=== PATIENT | female | born 1990 | race American Indian/Alaskan Native ===

== ENCOUNTER 2016-12-23 16:15 | Inpatient (IN) | payer MEDICAID ==
[2016-12-23 18:20] LABS: Hematocrit 34.7 % (30.3-42.9); Hemoglobin 11.1 gm/dl (10.1-14.3); Mean Corpuscular HGB Conc 32 % (30-34); Mean Corpuscular Hemoglobin 27 pg (28-32); Mean Corpuscular Volume 84 fl (79-97); Platelet Count 199 K/mm3 (140-440); Red Blood Count 4.12 M/mm3 (3.65-5.03); Red Cell Distribution Width 14.1 % (13.2-15.2); White Blood Count 7.1 K/mm3 (4.5-11.0)
[2016-12-23 18:30] LABS: Alanine Aminotransferase < 5 units/L (7-56); Lactate Dehydrogenase 176 units/L (91-180); Uric Acid 4.1 mg/dL (3.5-7.6)
[2016-12-23 18:30] LABS: Bilirubin,Urine NEG (Negative); Blood,Urine NEG (Negative); Ketones,Urine TR mg/dL (Negative); Leukocyte Esterase,Urine SM (Negative); Mucus,Urine 3+ /HPF; Nitrite,Urine NEG (Negative); Urobilinogen,Urine < 2.0 mg/dL (<2.0)
[2016-12-23] MEDS: LACTATED RINGERS 1,000 ML IV SCH ×2 (19:00→20:10)
[2016-12-23] MEDS ORDERED: LACTATED RINGERS 2,000 ML ONE (19:01)
[2016-12-23] MEDS ORDERED: PEPCID IV ONE (19:23)
[2016-12-23] MEDS ORDERED: REGLAN IV ONE (19:23)
[2016-12-23] MEDS ORDERED: BICITRA PO ONE (19:23)
--- NOTE | 2016-12-23 19:34 | Anesthesia Consultation ---
Anesthesia Consult and Med Hx Date of service: 12/23/16 - Airway Anesthetic Teeth Evaluation: Good ROM Head & Neck: Adequate Mental/Hyoid Distance: Adequate Mallampati Class: Class II Intubation Access Assessment: Probably Good - Pulmonary Exam CTA: Yes - Cardiac Exam Cardiac Exam: RRR - Pre-Operative Health Status ASA Pre-Surgery Classification: ASA2 Proposed Anesthetic Plan: Spinal - Pulmonary Hx Asthma: No COPD: No Hx Pneumonia: No - Cardiovascular System Hx Hypertension: Yes (2010 AND 2013) Hx Angina: No - Central Nervous System Hx Seizures: No Hx Psychiatric Problems: No - Endocrine Hx Renal Disease: No Hx End Stage Renal Disease: No Hx Liver Disease: No Hx Hypothyroidism: No Hx Hyperthyroidism: No - Hematic Hx Anemia: Yes (TAKES IRON DAILY) Hx Sickle Cell Disease: No - Other Systems Hx Alcohol Use: No
--- NOTE | 2016-12-23 19:34 | Anesthesia Day of Surgery ---
Anesthesia Day of Surgery - Day of Surgery Patient Examined: Yes Patient H&P Reviewed: Yes Patient is NPO: No (urgent case)
[2016-12-23] MEDS ORDERED: MORPHINE ONE (19:44)
[2016-12-23] MEDS ORDERED: ANCEF/STERILE WATER 2 GM/20 ML 2 GM/20 ML SYRINGE IV NR (20:00)
[2016-12-23] MEDS ORDERED: PITOCin/NS 20 UNIT/1000ML DRIP 20 UNITS/1,000 ML BAG IV SCH ×2 (20:00→23:00)
--- NOTE | 2016-12-23 20:32 | History and Physical Report ---
History of Present Illness Date of examination: 12/23/16 Date of admission: 12/23/16 19:32 Chief complaint: Repeat C Section History of present illness: Pt is a 26yo BF EDC 01/01/17; EGA 38 5/7 weeks presents from the office for BP monitoring. Her BP's ranged from 132-153/90-97 and she was scheduled for a Repeat C Section with BTL tomorrow, but we will proceed tonight. She received care at [facility] since 22 weeks and course was uneventful except for previous C Section x2. records are available and GBS is positive. Past History Past Medical History: hypertension Past Surgical History: section Social history: no significant social history, single - Obstetrical History Expected Date of Delivery: 01/01/17 Actual Gestation: 38 Week(s) 5 Day(s) : 3 Medications and Allergies Allergies Allergy/AdvReac Type Severity Reaction Status Date / Time diphenhydramine HCl Allergy Rash Verified 08/15/13 23:00 [From Benadryl] labetalol [Labetalol] Allergy Rash Verified 01/04/14 01:17 Home Medications Medication Instructions Recorded Confirmed Last Taken Type Ferrous Sulfate [Feosol 325 MG tab] 325 mg PO BID #60 tablet 01/05/14 12/23/16 1 Day Ago Rx Multivitamin [Multi Vitamin Daily] 1 each PO DAILY #60 tablet 01/05/14 12/23/16 1 Day Ago Rx Ferrous Sulfate [Feosol 325 MG tab] 325 mg PO BID #60 tablet 12/23/16 Unknown Rx HYDROcodone/APAP 5-325 [[place] 1 each PO Q6HR PRN #30 tablet 12/23/16 Unknown Rx 5/325] Ibuprofen [Motrin] 800 mg PO Q8HR PRN #30 tablet 12/23/16 Unknown Rx Vit W-Ca,Fe,FA(<1 mg) 1 each PO DAILY #30 tablet 12/23/16 Unknown Rx [ Vitamins] Active Meds: Active Medications Cefazolin Sodium (Ancef/Sterile Water 2 Gm/20 Ml) 2 gm in 20 mls @ 80 mls/hr IV PREOP NR PRN Reason: Protocol Stop: 12/23/16 23:59 Lactated Ringer's (Lactated Ringers) 1,000 mls @ 2,250 mls/hr IV PREOP CHUCKY Stop: 12/24/16 20:27 Last Admin: 12/23/16 19:00 Dose: 2,250 mls/hr Oxytocin/Sodium Chloride (Pitocin/Ns 20 Unit/1000ml Drip) 20 units in 1,000 mls @ 0 mls/hr IV TITR CHUCKY PRN Reason: As Directed Review of Systems All systems: negative - Vital Signs Vital signs: Vital Signs Pulse BP Pulse Ox 102 H 139/90 99 12/23/16 16:45 12/23/16 16:45 12/23/16 16:45 Temp Pulse Resp BP Pulse Ox 98.2 F 93 H 20 151/93 99 12/23/16 19:31 12/23/16 20:02 12/23/16 19:31 12/23/16 19:54 12/23/16 20:02 - Physical Exam Cardiovascular: Regular rate Lungs: Positive: Clear to auscultation Abdomen: Positive: normal appearance Genitourinary (Female): Positive: normal external genitalia Uterus: Positive: enlarged Extremities: Positive: normal - Obstetrical FHR: category 1 Uterine Contraction Monitor Mode: External Results Result Diagrams: 12/23/16 17:40 12/23/16 17:40 Abnormal lab results 12/23/16 12/23/16 12/23/16 Range/Units 16:45 17:40 17:40 MCH 27 L (28-32) pg Creatinine 0.6 L (0.7-1.2) mg/dL ALT < 5 L (7-56) units/L Ur Specific [place] 1.033 H (1.003-1.030) Urine WBC (Auto) 7.0 H (0.0-6.0) /HPF U Epithel Cells (Auto) 18.0 H (0-13.0) /HPF All other labs normal. Assessment and Plan - Patient Problems (1) Previous section complicating Onset Date: 12/23/16 Current Visit: Yes Status: Acute (2) 38 weeks gestation of Onset Date: 12/23/16 Current Visit: No Status: Acute Plan to address problem: A: IUP @ 38 5/7 weeks Previous C Section x 2 induced hypertension Desires permanent sterilization P: Admit to L&D for repeat C Section with BTL (3) Hypertension complicating Onset Date: 11/22/16 Current Visit: No Status: Suspected Qualifiers: Trimester: third trimester Qualified Code(s): O16.3 - Unspecified maternal hypertension, third trimester
[2016-12-23] MEDS ORDERED: ePHEDrine SULFATE ONE ×2 (20:45→22:30)
[2016-12-23] MEDS ORDERED: WATER FOR IRRIG STERILE IR ONE (20:55)
[2016-12-23] MEDS ORDERED: NACL 0.9% IR ONE (20:55)
[2016-12-23] MEDS ORDERED: ZOFRAN ONE (20:59)
[2016-12-23] MEDS ORDERED: ePHEDrine SULFATE IV ONE (21:28)
--- NOTE | 2016-12-23 21:44 | Operative Report ---
Operative Report Operative Report: Date of procedure: 12/23/2016 Pre-operative diagnosis: 1. Intrauterine at 38-5/7 weeks 2. Previous 2 3. -induced hypertension 4. Desires permanent sterilization Post-operative diagnosis: Same Procedure name(s): Repeat low transverse section with bilateral tubal ligation Surgeon: Callum Bellamy MD Crossbow Maker: None Anesthesia: Spinal anesthesia by Dr. Kike Valente EBL: 500 mL Findings: A 3092 g female infant Apgars 8 at 1 minute 8 at 5 minutes. Clear amniotic fluid. Normal uterus. Normal tubes and ovaries bilaterally. Procedure: After the patient was prepped and draped in usual sterile fashion, and after satisfactory level of epidural anesthesia was obtained, the skin knife was used to make a transverse skin incision through the previous skin scar. The incision was excised down to layer of the fascia, which was nicked in the midline and extended laterally using the Bovie cautery. The rectus muscles were dissected off the rectus fascia both superiorly and inferiorly. The rectus bellies in the midline, and the peritoneum was entered under direct visualization. The peritoneal incision was extended superiorly and inferiorly. A bladder flap was created and the bladder blade was then placed. The uterus was scored in a curvilinear linear fashion, entered in the midline revealing clear amniotic fluid. The infant's head was delivered onto the surgical field with the aid of a vacuum, and the oropharynx and nasopharynx were bulb suctioned. The rest of the infant's body was delivered, cord was doubly clamped and cut and the infant was handed to the waiting respiratory team. Cord blood was then obtained. The placenta was manually removed from the uterus, and the uterus removed from its normal anatomical position. After gentle uterine lavage, the incision was inspected and found to be without extensions. It was then closed in 2 layers using 0 Vicryl suture in a running interlocking fashion, the second layer imbricating the first. At this point, attention was turned to the tubal ligation. First the right fallopian tube was grasped using the [place], and after first identifying the fimbriated end the right tube, a [place] clip was applied to the proximal portion of the tube. The same procedure was performed on the left fallopian tube. The left fallopian tube was grasped using a [place], and after first identifying the fimbriated end of the left fallopian tube, the Filsh[place] clip was applied to the proximal portion of the tube. After good hemostasis was achieved, copious amounts or irrigation was performed , and the gutters were suctioned free of blood and blood clots. The uterus was then returned to its normal anatomical position, and after excellent hemostasis assured, the peritoneum was reapproximated using 3-0 Vicryl suture in a running interlocking fashion, and then the rectus muscles were reapproximated using 3-0 Vicryl suture in a [id number] configuration. The fascia was then reapproximated using 0 Vicryl suture in running interlocking fashion. The subcutaneous layer was made hemostatic using Bovie cautery, and reapproximated using 3-0 Vicryl suture, and the skin edges reapproximated using 4-0 Vicryl suture in a subcuticular fashion. Patient tolerated the procedure well was transported to recovery in stable condition.
[2016-12-23] MEDS ORDERED: ZOFRAN IV PRN (21:58)
[2016-12-23] MEDS ORDERED: PHENERGAN PO PRN (21:58)
[2016-12-23] MEDS ORDERED: NARCAN 0.4 MG/1 ML IV PRN ×2 (21:58→22:02)
[2016-12-23] MEDS ORDERED: PHENERGAN PR PRN (21:58)
--- NOTE | 2016-12-23 21:58 | Post Anesthesia Evaluation ---
- Post Anesthesia Evaluation Patient Participated: Yes Airway Patent: Yes Stable Respiratory Function: Yes Nausea/Vomiting: No Temp > 96.8F: Yes Pain Manageable: Yes Adequeate Hydration: Yes Anesthesia Complications: No Block Receding Appropriately: Yes Patient on Ventilator: No
[2016-12-23] MEDS ORDERED: SODIUM CHLORIDE FLUSH SYRINGE 10 ML IV PRN ×2 (22:00→23:00)
[2016-12-23] MEDS ORDERED: TORADOL IV PRN (22:02)
[2016-12-23] MEDS ORDERED: MILK OF MAGNESIA PO PRN (22:02)
[2016-12-23] MEDS ORDERED: TUCKS PAD TP PRN (22:02)
[2016-12-23] MEDS ORDERED: NORCO 5/325 PO PRN (22:02)
[2016-12-23] MEDS ORDERED: SENOKOT PO PRN (22:02)
[2016-12-23] MEDS ORDERED: TYLENOL PO PRN (22:02)
[2016-12-23] MEDS ORDERED: MYLICON PO PRN (22:02)
[2016-12-23] MEDS ORDERED: LANSINOH TP PRN (22:02)
[2016-12-23] MEDS ORDERED: D5LR 1,000 ML IV SCH (23:00)
[2016-12-24] MEDS: ANCEF/NS 1 GM/50 ML 1 GM/50 ML BAG IV SCH ×2 (03:53→12:50)
--- NOTE | 2016-12-24 10:29 | Progress Note ---
Assessment and Plan - Patient Problems (1) Previous section complicating Onset Date: 12/23/16 Current Visit: Yes Status: Resolved (2) 38 weeks gestation of Onset Date: 12/23/16 Current Visit: No Status: Resolved (3) Hypertension complicating Onset Date: 11/22/16 Current Visit: No Status: Suspected Qualifiers: Trimester: third trimester Qualified Code(s): O16.3 - Unspecified maternal hypertension, third trimester (4) Status post repeat low transverse section Onset Date: 12/24/16 Current Visit: Yes Status: Resolved Plan to address problem: A: S/P Repeat C Section with BTL - POD #1 Doing well Suspected chronic hypertension P: Continue RPOC Will begin Procardia XL 30mg QD Subjective - Subjective Date of service: 12/24/16 Principal diagnosis: s/p Repeat C Section - POD #1 Interval history: Pt is s/p a Repeat C Section with BTL and feeling well. Bleeding has improved and she denies headaches, blurred vision or epigastric pains. Patient reports: appetite normal, voiding normally (via hoover), pain well controlled, no flatus, no ambulating normally : doing well, nursing well Objective - Vital Signs Latest vital signs: Vital Signs Temp Pulse Pulse Resp BP BP Pulse Ox 12/24/16 08:15 99.1 F 80 19 158/86 12/24/16 05:06 98.4 F 80 20 146/87 12/23/16 22:50 97.9 F 65 23 112/54 99 12/23/16 22:35 73 28 H 96/57 99 12/23/16 22:20 69 25 H 100/46 98 12/23/16 22:05 68 30 H 139/74 99 12/23/16 22:00 68 35 H 136/67 99 12/23/16 21:55 74 28 H 138/71 97 12/23/16 21:50 97.9 F 72 23 136/68 97 12/23/16 20:02 93 H 99 12/23/16 19:57 99 H 99 12/23/16 19:54 90 151/93 12/23/16 19:52 109 H 98 12/23/16 19:51 112 H 200/96 12/23/16 19:38 93 H 100 12/23/16 19:37 94 H 157/75 12/23/16 19:33 102 H 100 12/23/16 19:31 98.2 F 20 12/23/16 19:28 98 H 100 12/23/16 19:27 96 H 155/74 12/23/16 19:23 96 H 100 12/23/16 19:21 88 179/105 12/23/16 19:18 91 H 100 12/23/16 19:13 93 H 100 12/23/16 19:08 104 H 100 12/23/16 19:07 94 H 161/87 12/23/16 19:03 90 100 12/23/16 18:58 85 100 12/23/16 18:53 95 H 100 12/23/16 18:51 86 132/67 12/23/16 18:48 82 100 12/23/16 18:43 83 99 12/23/16 18:38 81 99 12/23/16 18:36 85 147/92 12/23/16 18:33 86 99 12/23/16 18:28 84 98 12/23/16 18:23 97 H 99 12/23/16 18:20 85 146/95 12/23/16 18:18 82 99 12/23/16 18:13 85 98 12/23/16 18:08 87 99 12/23/16 18:06 88 136/93 12/23/16 18:03 86 98 12/23/16 17:58 93 H 98 12/23/16 17:53 107 H 98 12/23/16 17:50 112 H 153/97 12/23/16 17:48 123 H 98 12/23/16 17:43 117 H 98 12/23/16 17:36 102 H 149/95 12/23/16 17:35 100 H 99 12/23/16 17:30 107 H 99 12/23/16 17:25 103 H 99 12/23/16 17:21 120 H 132/93 12/23/16 17:20 106 H 99 12/23/16 17:15 108 H 99 12/23/16 17:10 107 H 99 12/23/16 17:05 114 H 141/95 99 12/23/16 17:00 96 H 98 12/23/16 16:55 108 H 98 12/23/16 16:50 109 H 98 12/23/16 16:45 102 H 139/90 99 Intake and Output 12/23/16 12/24/16 12/24/16 22:59 06:59 14:59 Intake Total 2250 865 125 Output Total 350 250 Balance 1900 615 125 Intake: IV 2250 625 125 D5lr 1,000 ml @ 125 mls/ 125 hr IV DIRECT CHUCKY Rx#: [id number] Lactated Ringers 1,000 ml 1000 @ 2250 mls/hr IV PREOP CHUCKY Rx#:[id number] PITOCin/NS 20 UNIT/1000ML 250 DRIP 20 units In 1,000 ml @ 250 mls/hr IV DIRECT CHUCKY Rx#:[id number] PITOCin/NS 20 UNIT/1000ML 375 DRIP 20 units In 1,000 ml @ As Directed IV TITR CHUCKY Rx#:[id number] Intake, Free Water 240 Output: Urine 350 250 Indwelling Catheter 250 Other: Total, Output Amount 250 Weight 159.665 kg Estimated Blood Loss 500 - Exam Breasts: Present: deferred Cardiovascular: Present: Regular rate Lungs: Present: Clear to auscultation Abdomen: Present: normal appearance, soft Uterus: Present: normal, firm, fundal height below umbilicus Extremities: Present: normal Incision: Present: normal, dry, intact, dressed - Labs Labs: Abnormal lab results 12/23/16 12/23/16 12/23/16 Range/Units 16:45 17:40 17:40 MCH 27 L (28-32) pg Creatinine 0.6 L (0.7-1.2) mg/dL ALT < 5 L (7-56) units/L Ur Specific [place] 1.033 H (1.003-1.030) Urine WBC (Auto) 7.0 H (0.0-6.0) /HPF U Epithel Cells (Auto) 18.0 H (0-13.0) /HPF Laboratory Tests 12/23/16 12/23/16 12/23/16 16:45 17:40 17:40 WBC 7.1 RBC 4.12 Hgb 11.1 Hct 34.7 MCV 84 MCH 27 L MCHC 32 RDW 14.1 Plt Count 199 Creatinine 0.6 L Estimated GFR > 60 Uric Acid 4.1 AST 10 ALT < 5 L Lactate Dehydrogenase 176 Urine Color Veronica Urine Turbidity Clear Urine pH 5.0 Ur Specific [place] 1.033 H Urine Protein 100 mg/dl Urine Glucose (UA) Neg Urine Ketones Tr Urine Blood Neg Urine Nitrite Neg Urine Bilirubin Neg Urine Urobilinogen < 2.0 Ur Leukocyte Esterase Sm Urine WBC (Auto) 7.0 H Urine RBC (Auto) 8.0 U Epithel Cells (Auto) 18.0 H Calcium Oxalate Crystal 2+ Urine Mucus 3+ Blood Type Antibody Screen MARVIN Antibody Screen 12/23/16 17:40 WBC RBC Hgb Hct MCV MCH MCHC RDW Plt Count Creatinine Estimated GFR Uric Acid AST ALT Lactate Dehydrogenase Urine Color Urine Turbidity Urine pH Ur Specific [place] Urine Protein Urine Glucose (UA) Urine Ketones Urine Blood Urine Nitrite Urine Bilirubin Urine Urobilinogen Ur Leukocyte Esterase Urine WBC (Auto) Urine RBC (Auto) U Epithel Cells (Auto) Calcium Oxalate Crystal Urine Mucus Blood Type O POSITIVE Antibody Screen TNR MARVIN Antibody Screen Negative
[2016-12-24 11:15] LABS: Hematocrit 28.4 % (30.3-42.9); Hemoglobin 9.2 gm/dl (10.1-14.3)
[2016-12-24] MEDS: PROCARDIA XL PO SCH (12:54)
[2016-12-24] MEDS: PERCOCET 5/325 PO PRN (17:43)
[2016-12-24] MEDS ORDERED: M-M-R II VACCINE SUB-Q ONE (22:03)
[2016-12-25] MEDS: MOTRIN PO PRN ×2 (04:16→17:01)
[2016-12-25] MEDS ORDERED: BOOSTRIX IM ONE (06:00)
--- NOTE | 2016-12-25 07:14 | Progress Note ---
Assessment and Plan A: S/P Repeat C Section with BTL - POD #2 Doing well Suspected chronic hypertension P: Continue RPOC Anticiptae D/C in 24-48 hrs - Patient Problems (1) Status post repeat low transverse section Onset Date: 12/24/16 Current Visit: Yes Status: Resolved (2) Hypertension complicating Onset Date: 11/22/16 Current Visit: No Status: Suspected Qualifiers: Trimester: third trimester Qualified Code(s): O16.3 - Unspecified maternal hypertension, third trimester Subjective - Subjective Date of service: 12/25/16 Principal diagnosis: s/p Repeat C Section - POD # 2 Interval history: Patient seen and examined, stable doing well. Pressure when controlled this AM ~ 130/78 and she is asymptomatic. She is currently on Procardia 30 mg XL daily as she is allergic to labetalol Patient reports: appetite normal, voiding normally, pain well controlled, ambulating normally, no dizzy ambulation, no nauseated [place]: doing well Objective - Vital Signs Latest vital signs: Vital Signs Temp Pulse Resp BP 12/25/16 00:00 98.6 F 72 20 147/79 12/24/16 17:43 20 12/24/16 16:45 98.4 F 80 19 176/103 12/24/16 12:10 98.8 F 78 18 156/88 12/24/16 08:15 99.1 F 80 19 158/86 Intake and Output 12/24/16 12/25/16 12/25/16 22:59 06:59 14:59 Intake Total 440 120 Output Total 600 Balance -160 120 Intake: IV 200 D5lr 1,000 ml @ 125 mls/ 200 hr IV DIRECT CHUCKY Rx#: [id number] Oral 240 120 Output: Urine 600 Indwelling Catheter 300 Void 300 Other: Total, Intake Amount 240 120 Total, Output Amount 300 # Voids Void 1 - Exam Abdomen: Present: normal appearance, soft. Absent: distention, tenderness, guarding, rigidity Extremities: Present: normal Incision: Present: dressed - Labs Labs: Abnormal lab results 12/24/16 Range/Units 10:29 Hgb 9.2 L (10.1-14.3) gm/dl Hct 28.4 L D (30.3-42.9) %
[2016-12-25] MEDS: FEOSOL PO SCH (09:31)
[2016-12-25] MEDS: PROCARDIA XL PO SCH (09:32)
[2016-12-25] MEDS: PRENATAL VITAMIN PO SCH (09:32)
[2016-12-26] MEDS: MOTRIN PO PRN (05:59)
--- NOTE | 2016-12-26 09:26 | Progress Note ---
Assessment and Plan A: S/P Repeat C Section with BTL - POD #3 Doing well Suspected chronic hypertension P: -Discharge home today -Follow up in clinic in 1 week for BP check - Patient Problems (1) Status post repeat low transverse section Onset Date: 12/24/16 Current Visit: Yes Status: Resolved (2) Hypertension complicating Onset Date: 11/22/16 Current Visit: No Status: Suspected Qualifiers: Trimester: third trimester Qualified Code(s): O16.3 - Unspecified maternal hypertension, third trimester Subjective - Subjective Date of service: 12/26/16 Principal diagnosis: s/p Repeat C Section - POD # 3 Interval history: Patient seen and examined, stable doing well. Pressure when controlled this AM ~ 130/78 and she is asymptomatic. She is currently on Procardia 30 mg XL daily as she is allergic to labetalol He is doing much better Patient reports: appetite normal, voiding normally, pain well controlled, flatus , ambulating normally, no dizzy ambulation, no nauseated : doing well Objective - Vital Signs Latest vital signs: Vital Signs Temp Pulse Resp BP 12/26/16 08:52 98.2 F 90 18 136/76 12/26/16 00:00 98.6 F 96 H 20 142/82 12/25/16 16:55 98.2 F 103 H 20 141/90 12/25/16 12:04 98.3 F 81 20 133/83 Intake and Output 12/25/16 12/26/16 12/26/16 22:59 06:59 14:59 Intake Total 480 240 Balance 480 240 Intake: Oral 480 240 Other: Total, Intake Amount 240 240 # Voids Void 1 1 - Exam Abdomen: Present: normal appearance, soft. Absent: distention, tenderness, guarding, rigidity Uterus: Present: fundal height below umbilicus. Absent: tenderness Extremities: Present: normal Incision: Present: dry, intact
--- NOTE | 2016-12-26 09:28 | Discharge Summary ---
Providers - Providers Date of Admission: 12/23/16 19:32 Date of discharge: 12/26/16 Attending physician: SEFERINO JOHNSON Primary care physician: SEFERINO JOHNSON Hospitalization Reason for admission: section Delivery: Procedure: bilateral tubal ligation, repeat low transverse Other procedures: none complications: other (elevated blood pressure controlled with Procardia) Discharge diagnosis: IUP at term delivered, other (HTN disorder of ) [place] baby: female Hospital course: Postoperative course complicated by elevated blood pressures controlled with Procardia 30 mg daily Condition at discharge: Good Disposition: DC-01 TO HOME OR SELFCARE - Discharge Diagnoses (1) Status post repeat low transverse section Status: Resolved (2) Hypertension complicating Status: Suspected Qualifiers: Trimester: third trimester Qualified Code(s): O16.3 - Unspecified maternal hypertension, third trimester Plan - Discharge Medications Prescriptions: Ferrous Sulfate [Feosol 325 MG tab] 325 mg PO BID #60 tablet HYDROcodone/APAP 5-325 [[place] 5/325] 1 each PO Q6HR PRN #30 tablet PRN Reason: Pain Ibuprofen [Motrin] 800 mg PO Q8HR PRN #30 tablet PRN Reason: Moder Pain Unrelieved By [place] NIFEdipine XL [Procardia Xl] 30 mg PO QDAY #30 tablet Vit W-Ca,Fe,FA(<1 mg) [ Vitamins] 1 each PO DAILY #30 tablet - Provider Discharge Summary Activity: no sex for 6 weeks, no heavy lifting 4 weeks, no strenuous exercise Diet: routine Additional instructions: [] Smoking cessation referral if applicable(refer to patient education folder for contact #) [] Refer to [facility]'s [facility] Booklet Call your doctor immediately for: * Fever > 100.5 * Heavy vaginal bleeding ( >1 pad per hour) * Severe persistent headache * Shortness of breath * Reddened, hot, painful area to leg or breast * Drainage or odor from incision. * Keep incision clean and dry at all times and follow doctor's instructions regarding bathing/showering - Follow up plan Follow up: SEFERINO JOHNSON MD [Primary Care Provider] - 7 Days
[2016-12-26] MEDS: PROCARDIA XL PO SCH (12:10)
[2016-12-26] MEDS: PERCOCET 5/325 PO PRN ×2 (12:10→18:15)
[2016-12-26] MEDS: FEOSOL PO SCH (12:10)
[2016-12-26] MEDS: PRENATAL VITAMIN PO SCH (12:10)
[2016-12-26 17:35] VITALS: BP 151/83
== END 2016-12-26 18:41 | disposition home or self-care (01) | DRG 765 ==
LOC: TRG 16:15 → APU 19:32 → OB 23:52
PROVIDERS: ADMIT Obstetrics & Gynecology; ATTEND Obstetrics & Gynecology
PROC: 10D00Z1 Extraction of Products of Conception, Low, Open Approach (ICD-10-PCS; principal; 2016-12-23)
PROC: 0UL70CZ Occlusion of Bilateral Fallopian Tubes with Extraluminal Device, Open Approach (ICD-10-PCS; 2016-12-23)
PROC: 3E0234Z Introduction of Serum, Toxoid and Vaccine into Muscle, Percutaneous Approach (ICD-10-PCS; 2016-12-23)
DX: O34.211 Maternal care for low transverse scar from previous cesarean delivery (principal); O10.92 Unspecified pre-existing hypertension complicating childbirth; Z3A.38 38 weeks gestation of pregnancy; Z37.0 Single live birth; Z30.2 Encounter for sterilization; Z88.8 Allergy status to other drugs, medicaments and biological substances
CPT/HCPCS: 36415; 81001; 82565; 83615; 84450; 84460; 84550; 85014; 85018; 85027; 86762; 86850; 86900; 86901; 90471; 90715; 99211; A6250; G0463; J0690; J2270; J2405; J2590; J2765; J7120; J7121

== ENCOUNTER 2021-02-21 20:47 | Emergency (ER) | payer MEDICAID ==
[2021-02-21 21:04] VITALS: BP 181/94
[2021-02-21] MEDS ORDERED: PANTOPRAZOLE 40 MG INJ IV ONE (21:52)
[2021-02-21] MEDS ORDERED: KETOROLAC 30 MG/1 ML INJ IV STA (21:55)
[2021-02-21 22:49] LABS: Basophils % (Auto) 0.4 % (0.0-1.8); Eosinophils # (Auto) 0.1 K/mm3 (0.0-0.4); Eosinophils % (Auto) 1.3 % (0.0-4.3); Hematocrit 34.7 % (30.3-42.9); Hemoglobin 11.2 gm/dl (10.1-14.3); Lymphocytes # (Auto) 3.1 K/mm3 (1.2-5.4); Lymphocytes % (Auto) 39.5 % (13.4-35.0); Mean Corpuscular HGB Conc 32 % (30-34); Mean Corpuscular Volume 82 fl (79-97); Monocytes # (Auto) 0.5 K/mm3 (0.0-0.8); Monocytes % (Auto) 6.1 % (0.0-7.3); Platelet Count 250 K/mm3 (140-440); Red Blood Count 4.23 M/mm3 (3.65-5.03); Red Cell Distribution Width 15.3 % (13.2-15.2)
[2021-02-21 23:04] LABS: Alanine Aminotransferase 7 units/L (7-56); Albumin 3.6 g/dL (3.9-5); Blood Urea Nitrogen 9 mg/dL (7-17); Calcium 8.7 mg/dL (8.4-10.2); Hemolysis Index 7
[2021-02-21 23:10] LABS: BUN/Creatinine Ratio 13; Bilirubin,Direct < 0.2 mg/dL (0-0.2)
--- NOTE | 2021-02-22 00:46 | Cat Scan Report ---
CT ABDOMEN AND PELVIS WITH IV CONTRAST INDICATION: "Generalized" abdominal and back pain x 4 days. COMPARISON: None available. TECHNIQUE: All CT scans at this facility use dose modulation, automated exposure control, iterative reconstructi on or weight based dosing, when appropriate, to reduce radiation dose to as low as reasonably achieva ble. FINDINGS: Lung Bases: No significant abnormality. Skeletal System: No acute abnormality. ABDOMEN: Liver: No significant abnormality. Gallbladder: No significant abnormality. Bile Ducts: No significant abnormality. Pancreas: No significant abnormality. Spleen: No significant abnormality. Adrenals: No significant abnormality. Right Kidney: No significant abnormality. Left Kidney: No significant abnormality. Upper GI tract: No significant abnormality. Lymph Nodes: No significant adenopathy. Aorta: No significant abnormality. Additional Findings: No significant abnormality. PELVIS: Colon: No acute abnormality. Urinary Bladder and Distal Ureters: No significant abnormality. Appendix: No significant abnormality. Lymph Nodes: No significant adenopathy. Additional Findings: Somewhat tubular cystic focus in the right adnexa. IMPRESSION: 1. No acute inflammatory process or obstruction. 2. Somewhat tubular cystic focus in the right adnexa could be right ovarian cysts or hydrosalpinx. Signer Name: Kel Cui MD Signed: 02/22/2021 12:42 AM Workstation Name: [id number]
--- NOTE | 2021-02-22 01:25 | Emergency Department Report ---
ED Abdominal Pain HPI - General Chief Complaint: Abdominal Pain Stated Complaint: STOMACH/BACK PAIN Time Seen by Provider: 02/21/21 21:42 Source: patient Mode of arrival: Ambulatory Limitations: No Limitations - History of Present Illness MD Complaint: abdominal pain -: Gradual, days(s) (5) Location: LLQ, RLQ Radiation: none, LLQ, RLQ, L flank, R flank Severity scale (0 -10): 4 Quality: aching, dull Consistency: constant Worsens With: nothing Associated Symptoms: denies: vomiting, diarrhea, dysuria, hematochezia, syncope - Related Data Previous Rx's Medication Instructions Recorded Last Taken Type Ferrous Sulfate [Feosol 325 MG tab] 325 mg PO BID #60 tablet 01/05/14 1 Day Ago Rx ~12/22/16 Multivitamin [Multi Vitamin Daily] 1 each PO DAILY #60 tablet 01/05/14 1 Day Ago Rx ~12/22/16 Ferrous Sulfate [Feosol 325 MG tab] 325 mg PO BID #60 tablet 12/23/16 Unknown Rx HYDROcodone/APAP 5-325 [[place] 1 each PO Q6HR PRN #30 tablet 12/23/16 Unknown Rx 5/325] Ibuprofen [Motrin] 800 mg PO Q8HR PRN #30 tablet 12/23/16 Unknown Rx Vit Calc,Iron,Folic 1 each PO DAILY #30 tablet 12/23/16 Unknown Rx [ Vitamins] NIFEdipine XL [Procardia Xl] 30 mg PO QDAY #30 tablet 12/25/16 Unknown Rx Ketorolac [Toradol] 10 mg PO Q6H PRN #14 tablet 02/22/21 Unknown Rx Allergies Allergy/AdvReac Type Severity Reaction Status Date / Time diphenhydramine HCl Allergy Rash Verified 08/15/13 23:00 [From Benadryl] labetalol [Labetalol] Allergy Rash Verified 01/04/14 01:17 ED Review of Systems ROS: Stated complaint: STOMACH/BACK PAIN Other details as noted in HPI Comment: All other systems reviewed and negative ED Past Medical Hx - Past Medical History Previous Medical History?: Yes Hx Hypertension: Yes (2010 AND 2013) Hx Congestive Heart Failure: No Hx Diabetes: No Hx Deep Vein Thrombosis: No Hx Liver Disease: No Hx Renal Disease: No Hx Sickle Cell Disease: No Hx Seizures: No Hx Asthma: No Hx COPD: No Hx HIV: No Additional medical history: Ab0. PIH and preeclampsia - Surgical History Past Surgical History?: Yes Additional Surgical History: section - Social History Smoking Status: Never Smoker Substance Use Type: None - Medications Home Medications: Home Medications Medication Instructions Recorded Confirmed Last Taken Type Ferrous Sulfate [Feosol 325 MG tab] 325 mg PO BID #60 tablet 01/05/14 12/23/16 1 Day Ago Rx ~12/22/16 Multivitamin [Multi Vitamin Daily] 1 each PO DAILY #60 tablet 01/05/14 12/23/16 1 Day Ago Rx ~12/22/16 Ferrous Sulfate [Feosol 325 MG tab] 325 mg PO BID #60 tablet 12/23/16 Unknown Rx HYDROcodone/APAP 5-325 [[place] 1 each PO Q6HR PRN #30 tablet 12/23/16 Unknown Rx 5/325] Ibuprofen [Motrin] 800 mg PO Q8HR PRN #30 tablet 12/23/16 Unknown Rx Vit Calc,Iron,Folic 1 each PO DAILY #30 tablet 12/23/16 Unknown Rx [ Vitamins] NIFEdipine XL [Procardia Xl] 30 mg PO QDAY #30 tablet 12/25/16 Unknown Rx Ketorolac [Toradol] 10 mg PO Q6H PRN #14 tablet 02/22/21 Unknown Rx ED Physical Exam - General Limitations: No Limitations General appearance: alert, in no apparent distress - Head Head exam: Present: atraumatic, normocephalic - Eye Eye exam: Present: normal appearance - ENT ENT exam: Present: mucous membranes moist - Neck Neck exam: Present: normal inspection - Respiratory Respiratory exam: Present: normal lung sounds bilaterally. Absent: respiratory distress - Cardiovascular Cardiovascular Exam: Present: regular rate, normal rhythm. Absent: systolic murmur, diastolic murmur, rubs, gallop - GI/Abdominal GI/Abdominal exam: Present: soft, tenderness, normal bowel sounds. Absent: guarding, rebound, hypoactive bowel sounds, organomegaly, mass, bruit - Extremities Exam Extremities exam: Present: normal inspection - Back Exam Back exam: Present: normal inspection - Neurological Exam Neurological exam: Present: alert, oriented X3 - Psychiatric Psychiatric exam: Present: normal affect, normal mood - Skin Skin exam: Present: warm, dry, intact, normal color. Absent: rash ED Course Vital Signs 02/21/21 21:03 Temperature 99.4 F Pulse Rate 71 Respiratory 18 Rate Blood Pressure 181/94 O2 Sat by Pulse 98 Oximetry ED Medical Decision Making - Lab Data Result diagrams: 02/21/21 22:25 02/21/21 22:25 Lab Results 02/21/21 02/21/21 02/21/21 Range/Units 22:25 22:25 22:25 WBC 7.8 (4.5-11.0) K/mm3 RBC 4.23 (3.65-5.03) M/mm3 Hgb 11.2 (10.1-14.3) gm/dl Hct 34.7 (30.3-42.9) % MCV 82 (79-97) fl MCH 26 L (28-32) pg MCHC 32 (30-34) % RDW 15.3 H (13.2-15.2) % Plt Count 250 (140-440) K/mm3 Lymph % (Auto) 39.5 H (13.4-35.0) % Bibb % (Auto) 6.1 (0.0-7.3) % Eos % (Auto) 1.3 (0.0-4.3) % Baso % (Auto) 0.4 (0.0-1.8) % Lymph # (Auto) 3.1 (1.2-5.4) K/mm3 Bibb # (Auto) 0.5 (0.0-0.8) K/mm3 Eos # (Auto) 0.1 (0.0-0.4) K/mm3 Baso # (Auto) 0.0 (0.0-0.1) K/mm3 Seg Neutrophils % 52.7 (40.0-70.0) % Seg Neutrophils # 4.1 (1.8-7.7) K/mm3 Sodium 139 (137-145) mmol/L Potassium 3.9 (3.6-5.0) mmol/L Chloride 104.3 (98-107) mmol/L Carbon Dioxide 27 (22-30) mmol/L Anion Gap 12 mmol/L BUN 9 (7-17) mg/dL Creatinine 0.7 (0.6-1.2) mg/dL Estimated GFR > 60 ml/min BUN/Creatinine Ratio 13 % Glucose 104 H (65-100) mg/dL Calcium 8.7 (8.4-10.2) mg/dL Total Bilirubin 0.20 (0.1-1.2) mg/dL Direct Bilirubin < 0.2 (0-0.2) mg/dL Indirect Bilirubin 0.0 mg/dL AST 12 (5-40) units/L ALT 7 (7-56) units/L Alkaline Phosphatase 68 (35-129) units/L Total Protein 7.3 (6.3-8.2) g/dL Albumin 3.6 L (3.9-5) g/dL Albumin/Globulin Ratio 1.0 % Lipase 21 (13-60) units/L HCG, Qual Negative (Negative) - Radiology Data [facility] [address] [id number] Cat Scan Report Signed Patient: DELVIN VERONICA MR#: [id number] : 1990 Acct:[id number] Age/Sex: 30 / F ADM Date: 02/21/21 Loc: ED Attending Dr: Ordering Physician: MIAH MCCRAY Date of Service: 02/21/21 Procedure(s): CT abdomen pelvis w con Accession Number(s): [id number] cc: MIAH MCCRAY CT ABDOMEN AND PELVIS WITH IV CONTRAST INDICATION: "Generalized" abdominal and back pain x 4 days. COMPARISON: None available. TECHNIQUE: All CT scans at this facility use dose modulation, automated exposure control, iterative reconstruction or weight based dosing, when appropriate, to reduce radiation dose to as low as reasonably achievable. FINDINGS: Lung Bases: No significant abnormality. Skeletal System: No acute abnormality. ABDOMEN: Liver: No significant abnormality. Gallbladder: No significant abnormality. Bile Ducts: No significant abnormality. Pancreas: No significant abnormality. Spleen: No significant abnormality. Adrenals: No significant abnormality. Right Kidney: No significant abnormality. Left Kidney: No significant abnormality. Upper GI tract: No significant abnormality. Lymph Nodes: No significant adenopathy. Aorta: No significant abnormality. Additional Findings: No significant abnormality. PELVIS: Colon: No acute abnormality. Urinary Bladder and Distal Ureters: No significant abnormality. Appendix: No significant abnormality. Lymph Nodes: No significant adenopathy. Additional Findings: Somewhat tubular cystic focus in the right adnexa. IMPRESSION: 1. No acute inflammatory process or obstruction. 2. Somewhat tubular cystic focus in the right adnexa could be right ovarian c ysts or hydrosalpinx. Signer Name: Kel Cui MD Signed: 02/22/2021 12:42 AM Workstation Name: [id number] Transcribed By: ELIZABET Dictated By: Kel Cui MD Electronically Authenticated By: Kel Cui MD Signed Date/Time: 02/22/2141 DD/ TD/TT: Print Cancel - Medical Decision Making This patient presents with abdominal pain of unclear etiology. A CT scan was performed to evaluate for potential causes of the abdominal pain, however, neither the clinical exam nor the CT has identified an emergent etiology for the abdominal pain. Specifically, given the benign exam, the laboratory studies, and unremarkable CT, I have a very low suspicion for appendicitis, ischemic bowel, bowel perforation, or any other life threatening disease. I have discussed with the patient the level of uncertainty with undifferentiated abdominal pain and clearly explained the need to follow-up as noted on the discharge instructions, or return to the Emergency Department immediately if the pain worsens, develops fever, persistent and uncontrollable vomiting, or for any new symptoms or concerns. Critical care attestation.: If time is entered above; I have spent that time in minutes in the direct care of this critically ill patient, excluding procedure time. ED Disposition Clinical Impression: Ovarian cyst, Abdominal pain Disposition: 01 HOME / SELF CARE / HOMELESS Is pt being admited?: No Does the pt Need Aspirin: No Condition: Stable Instructions: Ovarian Cystectomy, Abdominal Pain, Adult, [id number], Ovarian Cyst, Abdominal Pain (ED) Additional Instructions: You have been evaluated emergency department today for abdominal pain. Your evaluation did not show evidence of any medical conditions requiring emergent intervention at this time. Your lipase was it was elevated but not to a significant degree significant pancreatitis does not appear to be present at this time please drink plenty of fluids. Please schedule an appointment with your primary care physician. Return to emergency department if you experience worsening uncontrolled pain, fevers of 100.4 or greater, recurrent vomiting, inability to tolerate food or fluids by mouth, bloody stools or vomit, black tarry stools, or any other concerning symptoms. Prescriptions: Ketorolac [Toradol] 10 mg PO Q6H PRN #14 tablet PRN Reason: Pain Referrals: [facility] [Provider Group] - 3-5 Days
== END 2021-02-22 01:44 | disposition home or self-care (01) ==
LOC: ED 20:47
DX: N83.209 Unspecified ovarian cyst, unspecified side (principal); R10.31 Right lower quadrant pain; R10.32 Left lower quadrant pain; I10 Essential (primary) hypertension; Z98.890 Other specified postprocedural states
CPT/HCPCS: 36415; 74177; 80048; 80076; 83690; 84703; 85025; 96374; 96375; 99284; C9113; J1885; Q9967